=== PATIENT | male | born 1975 | race Caucasian/White ===

== ENCOUNTER 2016-10-17 13:06 | Emergency (ER) | payer BC, OTHER ==
[2016-10-17] MEDS ORDERED: HYDROcodone/Acetaminophen 10/325 mg Tablet ONE (13:55)
--- NOTE | 2016-10-17 14:30 | CT ---
CT OF THE BRAIN WITHOUT CONTRAST: Date: 10-17-16 FINDINGS: A noncontrast CT shows normal sized ventricles with no shift. No intracranial bleeding or extraaxia l hematoma was seen. There is no sign of mass, edema, or stroke. The sphenoid sinus and mastoid ai r cells are clear. The visible paranasal sinuses are clear. IMPRESSION: No acute intracranial finding. POS: HOME
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
== END 2016-10-17 14:03 | disposition home or self-care (01) ==
LOC: BURERS 13:06
DX: S06.0X0A Concussion without loss of consciousness, initial encounter (principal); S00.03XA Contusion of scalp, initial encounter; E11.9 Type 2 diabetes mellitus without complications; W22.8XXA Striking against or struck by other objects, initial encounter; Y93.64 Activity, baseball
CPT/HCPCS: 70450; 70486

== ENCOUNTER 2025-07-09 18:26 | Emergency (ER) | payer BC, OTHER ==
[2025-07-09] MEDS ORDERED: Lidocaine 1% w/Epinephrine 1:100K 20 ML VIAL ONE (18:37)
== END 2025-07-09 19:23 | disposition home or self-care (01) ==
LOC: BURERS 18:26
DX: S61.412A Laceration without foreign body of left hand, initial encounter (principal); E11.9 Type 2 diabetes mellitus without complications; Z23 Encounter for immunization; Z79.85 Long-term (current) use of injectable non-insulin antidiabetic drugs; Z79.84 Long term (current) use of oral hypoglycemic drugs; Z79.4 Long term (current) use of insulin; W26.0XXA Contact with knife, initial encounter
CPT/HCPCS: 12002; 90471; 90715